=== PATIENT | female | born 1980 | race Caucasian/White ===

== ENCOUNTER 2019-07-03 18:52 | Observation (INO) ==
[2019-07-03 19:27] LABS: Bilirubin,Urine Negative (Negative); Blood,Urine Negative (Negative); Clarity,Urine Cloudy (Clear); Color,Urine Yellow (Yellow); Glucose,Urine (UA) Normal (Normal); Ketones,Urine Negative (Negative); Leukocyte Esterase,Urine Negative (Negative); Nitrite,Urine Negative (Negative); Protein,Urine Trace mg/dL (Neg-Trace); Specific Gravity,Urine 1.025 (1.010-1.025); Urobilinogen,Urine Normal (Normal)
[2019-07-03 19:29] LABS: Bacteria,Urine Moderate per hpf (None-Few); Hyaline Casts,Urine Moderate per lpf (None-Few); Squamous Epithelial Cell,Urine Many per lpf (None-Few)
[2019-07-03 19:35] LABS: Amphetamine Screen,Urine Negative ng/mL (Cutoff=1000); Barbiturate Screen,Urine Negative ng/mL (Cutoff=200); Benzodiazepines Screen,Urine Negative ng/mL (Cutoff=200); Cannabinoid Screen,Urine Negative ng/mL (Cutoff = 50); Cocaine Screen,Urine Negative ng/mL (Cutoff= 300); Opiate Screen,Urine Negative ng/mL (Cutoff=300); Phencyclidine Screen,Urine Negative ng/mL (Cutoff=25)
[2019-07-03 19:37] LABS: Basophils % 0.4 %; Eosinophils # 0.3 K/mcL (0.0-0.6); Eosinophils % 2.6 %; Hematocrit 43.6 % (35.3-44.9); Hemoglobin 14.5 g/dL (11.5-15.4); Immature Granulocytes % 0.4 % (0-4); Lymphocytes # 2.1 K/mcL (0.6-4.6); Lymphocytes % 21.6 %; Mean Corpuscular HGB Conc 33.3 g/dL (31.6-35.5); Mean Corpuscular Volume 93.2 fL (83.0-100.0); Mean Platelet Volume 9.6 fL (9.4-12.4); Monocytes # 0.6 K/mcL (0.0-1.3); Monocytes % 6.2 %; Neutrophils # 6.6 K/mcL (1.6-8.9); Platelet Count 294 K/mcL (140-400); Red Blood Count 4.68 M/mcL (3.82-4.97); Segmented Neutrophils % 68.8 %; White Blood Count 9.7 K/mcL (4.3-11.1)
[2019-07-03 19:44] LABS: RBC,Urine 0-3 per hpf (0-3)
[2019-07-03] MEDS ORDERED: *HR* LORazepam 1 MG TABLET PO STA (19:51)
[2019-07-03 19:54] LABS: Acetaminophen < 10 mcg/mL (10-20); BUN/Creatinine Ratio 12 (6-26); Blood Urea Nitrogen 12 mg/dL (6-20); Calcium 9.4 mg/dL (8.6-10.3); Carbon Dioxide 21 mEq/L (23-29); Chloride 104 mEq/L (98-107); Chol/HDL Ratio 5.7 (0-4.9); Cholesterol 189 mg/dL (< 200); Ethanol < 10 mg/dL (Less than 10); Glucose 96 mg/dL (70-105); HDL Cholesterol 33 mg/dL (40-59); LDL Cholesterol,Calculated 105 mg/dL (0-99); Osmolality,Calculated 284 (280-300); Potassium 3.7 mEq/L (3.5-5.1); Salicylate < 2.5 mg/dL (15.0-30.0); Sodium 137 mEq/L (136-145); Triglycerides 255 mg/dL (< 150); eGFR For African Americans > 60 (> 60); eGFR For Non-African Americans > 60 (> 60)
[2019-07-03 20:16] LABS: Estimated Average Glucose 123 mg/dl
[2019-07-03] MEDS ORDERED: MOM Conc 10 ML UD.LIQ PO PRN (22:02)
[2019-07-03] MEDS ORDERED: *HR* LORazepam 1 MG TABLET PO PRN (22:02)
[2019-07-03] MEDS ORDERED: Ibuprofen 400 MG TABLET PO PRN (22:02)
[2019-07-03] MEDS ORDERED: haloperidoL 5 MG TABLET PO PRN (22:02)
[2019-07-03] MEDS ORDERED: Mag Hydrox/Al Hydrox/Simeth 30 ML UDC PO PRN (22:02)
[2019-07-03] MEDS ORDERED: *HR* LORazepam 2 MG/ML VIAL IM PRN (22:02)
[2019-07-03] MEDS ORDERED: traZODone 50 MG TABLET PO PRN (22:02)
[2019-07-03] MEDS ORDERED: hydrOXYzine pamoate 25 MG CAPSULE PO PRN (22:02)
[2019-07-03] MEDS ORDERED: Haloperidol Lactate 5 MG/ML VIAL IM PRN (22:02)
[2019-07-04] MEDS ORDERED: BuPROPion SR (12 HR) 150 MG TABLET PO SCH (09:00)
[2019-07-04 09:12] VITALS: BP 110/78
== END 2019-07-04 12:57 | disposition home or self-care (01) ==
LOC: EMEROOARM 18:52 → 1ANU 18:52
PROVIDERS: ADMIT Psychiatry & Neurology Psychiatry; ATTEND Psychiatry & Neurology Psychiatry